=== PATIENT | female | born 1985 | race Caucasian/White ===

== ENCOUNTER 2021-12-13 13:20 | Outpatient (CLI) | payer OTHER ==
[~2021-12-13 13:20] MED LIST: TRAMADOL HCL50 MG PO; TRIPLE ANTIBIOT15 GM TP
== END 2021-12-13 13:29 | disposition home or self-care (01) ==
LOC: RAD 13:20
PROVIDERS: ATTEND Orthopaedic Surgery
DX: M25.551 Pain in right hip (principal); M25.552 Pain in left hip